=== PATIENT | female | born 1935 | race Caucasian/White ===

== ENCOUNTER 2016-11-21 01:16 | Emergency (ER) | payer OTHER, MEDICARE ==
[~2016-11-21] VITALS: Ht 162.6 cm; Wt 67.7 kg
[2016-11-21 01:29] VITALS: TEMP 36.6; Ht 162.6 cm; Wt 67.7 kg
[2016-11-21] MEDS ORDERED: DiphenhydrAMINE HCL 50 MG/ML VIAL IV STA (01:48)
[2016-11-21] MEDS ORDERED: METHYLPREDNISOLONE 125 MG VIAL IV STA (01:48)
[2016-11-21 01:55] LABS: BASO % 0.3 %; BASO ABS # 0.02 K/uL (0-0.2); COMPLETE YES; EOS % 6.6 %; HEMATOCRIT 43.3 % (37-47); IG% 0.3 %; LYMPH % 27.4 %; LYMPH ABS # 1.71 K/uL (1.2-3.4); MEAN CELL VOLUME 91.2 fL (80-100); MEAN CORPUSCULAR HEMOGLOBIN 30.9 pg (25-34); MEAN CORPUSCULAR HGB CONC 33.9 g/dl (32-36); MEAN PLATELET VOLUME 9.3 fL (7.4-10.4); MONO % 10.1 %; NEUT % 55.3 %; PLATELET COUNT 233 K/uL (130-400); RED BLOOD COUNT 4.75 M/uL (4.2-5.4); WHITE BLOOD COUNT 6.25 K/uL (4.8-10.8)
[2016-11-21] MEDS ORDERED: MULT1CAP16 PO (02:08)
[2016-11-21 02:14] LABS: ALB/GLOB RATIO 1.2 (0.9-2); BUN/CREATININE RATIO 16.8 (10-20); CALCIUM 9.6 mg/dl (8.5-10.1); CREATININE 0.95 mg/dl (0.60-1.20); POTASSIUM 4.2 mmol/L (3.5-5.1)
[2016-11-21] MEDS ORDERED: PRED50TA PO (03:03)
--- NOTE | 2016-11-21 03:04 | EMERGENCY ROOM VISIT NOTE ---
History First contact with patient: 01:33 Chief Complaint: SKIN PROBLEM Stated Complaint: ITCHY ALL OVER History of Present Illness The patient is a 81 year old female who presents to the Emergency Room with complaints of an itchy rash which has been present intermittently for the past one month. The patient reports that her symptoms started around 1 month ago, when she had itchiness of her neck and face. She was seen at an emergency department in her hometown in [place] and was given Benadryl as some improvement. She states that her symptoms returned the next day and she was again seen there and given IV Benadryl with improvement. She has seen her primary care provider, who referred her to a lpc. She states that they gave her a topical steroid which she has been using without relief of her symptoms. Her symptoms fluctuate and seemed to improve at times, then worsen again. She reports that today, she has had itchiness of her face, neck and both arms. She denies any pain. She is otherwise healthy. She denies any new medications or new environmental exposures. Review of Systems A complete 10 point review of systems was reviewed with the patient with pertinent positives and negatives as per history of present illness. All else were negative. Social History Smoking Status: Never Smoker Current/Historical Medications Scheduled Multiple Vitamins W/ Minerals (Multi Complete), 1 CAP PO DAILY Prednisone (Prednisone), 50 MG PO DAILY Allergies Coded Allergies: No Known Allergies (Unverified , 11/21/16) Physical Exam Vital Signs Date Time Temp Pulse Resp B/P (MAP) Pulse Ox O2 Delivery O2 Flow Rate FiO2 11/21/16 03:17 65 17 178/87 94 11/21/16 01:29 36.6 75 20 173/96 99 Room Air Physical Exam VITALS: Vitals are noted on the nurse's note and reviewed by myself. Vital signs stable. GENERAL: This is an 81-year-old female, in no acute distress, nondiaphoretic, well-developed well-nourished. SKIN: There are areas of erythema and excoriation over bilateral antecubital fossas, anterior neck and periorbital regions. HEENT: Normocephalic. PERRLA. EOMI. Nares patent. Mucous membranes moist. HEART: Regular rate and rhythm without murmurs gallops or rubs. LUNGS: Clear to auscultation bilaterally without wheezes, rales or rhonchi. NEURO: Patient was alert and oriented to person place and time. Medical Decision & Procedures Laboratory Results 11/21/16 01:38 Red Blood Count 4.75, Mean Corpuscular Volume 91.2, Mean Corpuscular Hemoglobin 30.9, Mean Corpuscular Hemoglobin Concent 33.9, Mean Platelet Volume 9.3, Neutrophils (%) (Auto) 55.3, Lymphocytes (%) (Auto) 27.4, Monocytes (%) (Auto) 10.1, Eosinophils (%) (Auto) 6.6, Basophils (%) (Auto) 0.3, Neutrophils # (Auto ) 3.46, Lymphocytes # (Auto) 1.71, Monocytes # (Auto) 0.63, Eosinophils # (Auto ) 0.41, Basophils # (Auto) 0.02 11/21/16 01:38 Test 11/21/16 01:38 White Blood Count 6.25 K/uL (4.8-10.8) Red Blood Count 4.75 M/uL (4.2-5.4) Hemoglobin 14.7 g/dL (12.0-16.0) Hematocrit 43.3 % (37-47) Mean Corpuscular Volume 91.2 fL (80-100) Mean Corpuscular Hemoglobin 30.9 pg (25-34) Mean Corpuscular Hemoglobin Concent 33.9 g/dl (32-36) Platelet Count 233 K/uL (130-400) Mean Platelet Volume 9.3 fL (7.4-10.4) Neutrophils (%) (Auto) 55.3 % Lymphocytes (%) (Auto) 27.4 % Monocytes (%) (Auto) 10.1 % Eosinophils (%) (Auto) 6.6 % Basophils (%) (Auto) 0.3 % Neutrophils # (Auto) 3.46 K/uL (1.4-6.5) Lymphocytes # (Auto) 1.71 K/uL (1.2-3.4) Monocytes # (Auto) 0.63 K/uL (0.11-0.59) Eosinophils # (Auto) 0.41 K/uL (0-0.5) Basophils # (Auto) 0.02 K/uL (0-0.2) RDW Standard Deviation 44.1 fL (36.4-46.3) RDW Coefficient of Variation 13.3 % (11.5-14.5) Immature Granulocyte % (Auto) 0.3 % Immature Granulocyte # (Auto) 0.02 K/uL (0.00-0.02) Anion Gap 8.0 mmol/L (3-11) Est Creatinine Clear Calc Drug Dose 44.7 ml/min Estimated GFR () 65.6 Estimated GFR (Non- 56.6 BUN/Creatinine Ratio 16.8 (10-20) Calcium Level 9.6 mg/dl (8.5-10.1) Total Bilirubin 0.6 mg/dl (0.2-1) Aspartate Amino Transf (AST/SGOT) 16 U/L (15-37) Alanine Aminotransferase (ALT/SGPT) 16 U/L (12-78) Alkaline Phosphatase 59 U/L (45-117) Total Protein 6.9 gm/dl (6.4-8.2) Albumin 3.7 gm/dl (3.4-5.0) Globulin 3.2 gm/dl (2.5-4.0) Albumin/Globulin Ratio 1.2 (0.9-2) Chemistry Specimen Hemolysis Medications Administered Medications (Trade) Dose Ordered Sig/Marcellus Route Start Time Stop Time Status Last Admin Dose Admin Diphenhydramine HCl (Benadryl Inj) 25 mg NOW STAT IV 11/21/16 01:48 11/21/16 01:49 DC 11/21/16 01:57 25 MG Methylprednisolone Sodium Succinate (Solu-Medrol IV) 125 mg NOW STAT IV 11/21/16 01:48 11/21/16 01:49 DC 11/21/16 01:57 125 MG ED Course The patient was evaluated as above. Labs were drawn and IV access was obtained. Patient was medicated with 25 mg IV Benadryl and 125 mg IV Solu-Medrol. Discharge instructions were reviewed with the patient. The patient verbalized understanding of my assessment and treatment plan and was discharged home in good condition. Medical Decision Differential diagnosis includes allergic reaction, eczema, infection, Mata- Marcial syndrome, among others. The patient is a 81-year-old female who presents today complaining of a generalized rash and itchiness. The patient has been seen by multiple providers for this same rash. She did improve with IV Benadryl and steroids. Labs were unremarkable. I will place the patient on a course of oral steroids and will have her follow-up with her lpc for further evaluation. The patient was independently evaluated by Dr. Morrison, ED attending physician, who agreed with my assessment and treatment plan. Based on the patient's presentation and work up, I feel the patient is stable for outpatient treatment. The patient was educated to return to the emergency department for any worsening of their current condition or new/concerning symptoms. She will follow up with her PCP and lpc. Medication reconciliation: I attest that I have personally reviewed the patient 's current medication list. Blood pressure screening: Patient was found to have an elevated blood pressure and was referred to their primary care provider for recheck and further treatment. Impression Primary Impression: Generalized pruritus Departure Information Dispostion Home / Self-Care Condition GOOD Prescriptions Prednisone (Prednisone) 50 Mg Tab 50 MG PO DAILY for 4 Days, #4 TAB Prov: Karmen Mares ., RENE 11/21/16 Referrals No Doctor, Assigned (PCP) Patient Instructions My [facility] Additional Instructions You have been prescribed Prednisone. This is a steroid which will help decrease your inflammation, redness, and itch. Take this medicine as prescribed. Take the ENTIRE 4 day course. It is best to take steroids early in the morning as PM dosing can affect your sleeping patterns. You should take Benadryl (diphenhydramine) 25-50 mg every 6 hours as needed for itching. Be aware that Benadryl can make you drowsy. You may try some Eucerin or Cerave cream to help with the dry skin. Follow-up with your lpc for further evaluation.
[2016-11-21 03:17] VITALS: BP 178/87; PULSE 65; O2SAT 94
--- NOTE | 2016-11-21 03:18 | EMERGENCY ROOM VISIT NOTE ---
ED Visit Note First contact with patient: 01:33 I saw this patient in conjunction with Karmen Mares PA-C. I agree with her decision making and treatment plan.
== END 2016-11-21 03:19 | disposition home or self-care (01) ==
LOC: C.EDB 01:17
DX: L29.8 Other pruritus (principal)